=== PATIENT | male | born 1995 | race Caucasian/White ===

== ENCOUNTER 2018-09-11 00:09 | Emergency (ER) | payer MEDICAID, SELFPAY ==
[2018-09-11 00:11] VITALS: BP 140/91; PULSE 81; RESP 20; TEMP 36.6; O2SAT 100
[2018-09-11] MEDS: predniSONE 20 MG TAB 60 MG PO (00:29)
[2018-09-11] MEDS: Azithromycin 250 MG TAB 500 MG PO (00:29)
--- NOTE | 2018-09-11 00:40 | ED.GENADUL_ITS ---
Discharge Plan Disposition Patient Disposition: HOME Condition: Stable Discharge Details Chief Complaint: RespSymp Clinical Impression: Right otitis media with effusion, Bronchitis Primary Care Provider: Gianna Lemons V ED Provider: Yin Altman Home Meds and New Rx's Prescriptions: New prednisone 20 mg tablet 20 mg PO DIRECTED Qty: 12 RF: 0 azithromycin [Zithromax] 250 mg tablet 250 mg PO DAILY 4 Days Qty: 4 RF: 0 Discharge Instructions Instructions: Otitis Media (ED), Acute Bronchitis (ED) Additional Instructions: Alternate Tylenol and Motrin as needed and directed for pain. Take the antibiotics and steroids until finished. Use your albuterol inhaler as needed and directed. You should receive a call from care management regarding follow-up with a primary care doctor for reevaluation. Return immediately to the emergency department any worsening or new concerning symptoms. Discharge Data Discharge Physician: Yin Altman Medical Decision Making 22-year-old male who presents with URI symptoms for the past month. Main complaint at this time is right ear pain. Pressure mildly hypertensive, otherwise vitals within normal limits. Patient afebrile. Patient appears nontoxic. No meningeal signs. Bilateral TMs erythematous and dull, with yellowish fluid behind right TM. Remainder of ENT exam within normal limits. No lymphadenopathy. Lungs bilaterally note scattered rhonchi and minimal wheezing. Abdomen soft and nontender. Patient offered chest x-ray but declines. Patient denies shortness of breath at this time and oxygen saturation and respiratory rate within normal limits. Patient would rather prescriptions for home. Will give a dose of prednisone and Zithromax here as well as prescriptions. Patient does not have a PCP. He was placed on care management list to arrange for a follow-up with a primary care doctor. Patient was instructed to return here at any time if worse. HPI General Mode of arrival: ambulatory . Date/Time Provider Initiated Documentation: 09/11/18 00:24 . Limitations to Documentation: no limitations . Information obtained by: patient . HPI Narrative: Pt is a 22yo M who presents to the ED w/ a c/o cold symptoms for the past month. Pt states his cough was initially productive with sputum and chest congestion but is now dry. Patient states he had had shortness of breath but this is resolving. Patient states his main complaint now is right ear pain and occasional headache. He denies any fever, sore throat, neck pain. Patient has taken Zyrtec for his symptoms. Patient had some nausea earlier today and took Zofran but had no vomiting. Patient states he was able to eat 2 hot dogs after this. Patient states he has been eating and drinking. Related Data Home Medications Medication Instructions Recorded Confirmed azithromycin [Zithromax] 250 mg PO DAILY 4 Days #4 tab 09/11/18 prednisone 20 mg PO DIRECTED #12 tab 09/11/18 Previous Rx's Medication Instructions Recorded azithromycin [Zithromax] 250 mg PO DAILY 4 Days #4 tab 09/11/18 prednisone 20 mg PO DIRECTED #12 tab 09/11/18 Allergies Allergy/AdvReac Type Severity Reaction Status Date / Time amoxicillin Allergy Skin Rash Unverified 09/11/18 00:15 General Stated Complaint: RespSymp DARRIN: 4 Review of Systems Review of Systems All systems reviewed & are unremarkable except as noted in HPI and below Constitutional Reports as per HPI, Denies chills and Denies fever(s) Eyes Denies blurry vision ENT Denies dizziness, Reports otalgia, Denies sore throat and Denies throat swelling Cardiovascular Denies chest pain and Denies dyspnea Respiratory Reports cough and Denies dyspnea Gastrointestinal Denies abdominal pain, Denies diarrhea and Denies vomiting Genitourinary Denies hematuria and Denies dysuria Musculoskeletal Denies back pain and Denies numbness Integumentary/Breasts Denies lesions and Denies rash Neurologic Denies dizziness and Denies numbness Allergic/Immunologic Denies throat swelling PFSH Family History Mother Cardiomyopathy Medical History Asthma (Chronic) Social History Smoking/Tobacco Use Status: Never Exam Const General: cooperative and healthy appearing Orientation: alert and awake [facility] Head: normal to inspection Ears: TM abnormal bulging, dull, wth effusion other (yellowish), erythematous and with fluid behind the TM on the right and other (L TM erythematous with clear fluid ) General nose exam: external nose normal Face and sinus: normal facial exam Mouth: oral mucosae normal Teeth and gingiva: dentition normal Throat: posterior oropharynx normal Eyes General: appearance normal, both eyes and all related structures Eyelids: eyelids normal Pupils: PERRL EOM: EOM intact bilaterally Neck Neck: normal visual inspection Lymphatic: no lymphadenopathy noted Chest Chest: normal inspection of the chest Resp Effort & Inspection: normal respiratory effort and able to speak in complete sentences Auscultation: rhonchi lower bilaterally and wheezes scattered wheezes (minimal) Cardio Rate: regular rate Rhythm: regular rhythm GI Inspection: normal to inspection Palpation: soft, not firm, no guarding, no hepatosplenomegaly, no masses and nontender Auscultation: normal bowel sounds Skin General skin exam: no rashes or lesions noted Neuro General: alert, awake, oriented x3 and no meningeal signs Cognition: normal cognition Speech: speech normal Gait: normal gait Motor: muscle tone normal throughout Sensory Exam: no sensory deficits noted Extrem General: normal to inspection, full ROM, normal capillary refill and no edema Psych Appearance: grossly normal Mental Status: mental status grossly normal Speech and Movement: speech and movement normal Affect: normal affect Thought Process: normal Course Vital Signs Temperature 97.9 F 09/11/18 00:11 Pulse 81 09/11/18 00:11 Respiratory Rate 20 09/11/18 00:11 Blood Pressure 140/91 H 09/11/18 00:11 Pulse Oximetry 100 09/11/18 00:11 Temperature 97.9 F 09/11/18 00:11 Temperature Source Skin 09/11/18 00:11 Pulse 81 09/11/18 00:11 Respiratory Rate 20 09/11/18 00:11 Respiratory Effort Non-Labored 09/11/18 00:16 Respiratory Depth Normal 09/11/18 00:16 Blood Pressure 140/91 H 09/11/18 00:11 Blood Pressure Position Sitting 09/11/18 00:11 Pulse Oximetry 100 09/11/18 00:11 Oxygen Delivery Method Room Air 09/11/18 00:11 Oxygen Flow Rate 0 09/11/18 00:11 Pain Level 6 09/11/18 00:11
[2018-09-11 00:42] VITALS: BP 140/91; PULSE 81; RESP 20; TEMP 36.6; O2SAT 100
== END 2018-09-11 00:35 | disposition home or self-care (01) ==
PROVIDERS: Emergency Provider Physician Assistant; PCP Family Medicine
DX: H65.191 Other acute nonsuppurative otitis media, right ear (principal); J20.9 Acute bronchitis, unspecified
CPT/HCPCS: 99283; J7512

== ENCOUNTER 2021-05-06 18:38 | Emergency (ER) | payer SELFPAY ==
[2021-05-06 18:45] VITALS: BP 146/94; PULSE 60; RESP 16; TEMP 36.4; O2SAT 99
--- NOTE | 2021-05-06 18:58 | W.ED.GENAD ---
Discharge Plan Disposition Patient Disposition: HOME Condition: Improving Discharge Details Clinical Impression: Abscess of shaft of penis Primary Care Provider: Sebastian Dewitt ED Provider: Ross Hanks Discharge Instructions Instructions: Abscess (ED) Additional Instructions: Please take Bactrim twice daily until finished. Our care management team will arrange a follow-up for you in urology clinic. Return if develop a fever, shaking chills, or any other acute concerns. You may have discrete bleeding for approximately 1/2-day. Continue gentle dressing as needed for 1 to 2 days time. Stand Alone Forms: Work Release Discharge Data Discharge Date/Time-TO BE ENTERED AT DEPARTURE: 05/06/21 19:35 Medical Decision Making 25-year-old male presents with approximately 1 week of slowly progressive discrete abscess on the distal dorsal shaft of his penis just proximal to the penile meatus. He is not systemically ill him is otherwise been well. I consented the patient for the procedure, he was prepped and draped in a standard sterile fashion, the area was anesthetized with lidocaine, and needle aspiration and subsequent incision with an 11 blade scalpel was made with the release of approximately 0.5 cc of purulent fluid which was sent for culture. Most consistent with a cutaneous abscess. Will place him on Bactrim to ensure healing. I will also ask physician assistant primary care to arrange a follow-up with urology for reevaluation. Patient stable and improved. HPI General Mode of arrival: ambulatory. Date/Time Provider Initiated Documentation: 05/06/21 18:38. Limitations to Documentation: no limitations. Information obtained by: patient. History of Present Illness 25 year old M presents to the emergency department with the chief complaint of Penile lesion, described as mild and moderate, Quality is described as dull and constant, and is localized to the genitals. Patient reports no radiation. Patient started experiencing this day(s) and it has been constant. No relieving factors improve symptom(s), No exacerbating factors reported . Patient did receive the following treatments prior to arrival, none Related Data Allergies Allergy/AdvReac Type Severity Reaction Status Date / Time amoxicillin Allergy Skin Rash Unverified 05/06/21 18:48 General Stated Complaint: RashLesion DARRIN: 4 Review of Systems Narrative: 6 systems reviewed and otherwise negative. [facility] Medical History (Updated 05/06/21 @ 19:22 by Ross Hanks MD) Asthma Family History Mother Cardiomyopathy Social History Smoking/Tobacco Use Status: Former Tobacco Use Smoking risk assessment performed?: Yes Alcohol Intake: current Alcohol Intake frequency: a few times a month Drug use: Never Substance use type: does not use Do you feel safe at home: Yes Do you feel safe in your relationship?: Yes Exam Narrative Exam Narrative: GEN: awake, alert, oriented 3. Pleasant, well groomed, interactive. HEAD: Normocephalic, atraumatic ENT: Mucous membranes moist, oropharynx unremarkable, External ear exam unremarkable CHEST/RESP: Nontender, clear to auscultation bilateral, no wheeze/rhonchi/rales CARDIOVASCULAR: RRR, no murmur, rub kosta. 2+ Rad pulse bilateral ABDOMEN: Soft, nontender, no mass. +Bowel sounds DESPATCHING AND RECEIVING CLERK: Circumcised. On the dorsal distal shaft of the penis on the right side there is a small approximately half centimeter diameter pustule. EXT: Full ROM, no edema, no rash Neuro: Grossly normal neurologic exam, conversant, interactive. Psych: Speech fluent, thoughts congruent, affect normal Course Vital Signs Vital signs: Vital Signs Temperature 36.4 C L 05/06/21 18:45 Pulse 60 05/06/21 18:45 Respiratory Rate 16 05/06/21 18:45 Blood Pressure 146/94 H 05/06/21 18:45 Pulse Oximetry 99 05/06/21 18:45 Temperature 36.4 C L 05/06/21 18:45 Temperature Source Temporal Artery Scan 05/06/21 18:45 Pulse 60 05/06/21 18:45 Respiratory Rate 16 05/06/21 18:45 Blood Pressure 146/94 H 05/06/21 18:45 Blood Pressure Position Sitting 05/06/21 18:45 Pulse Oximetry 99 05/06/21 18:45 Oxygen Delivery Method Room Air 05/06/21 18:45 Oxygen Flow Rate 0 05/06/21 18:45 Procedures Abscess I/D Site: Other (penis) Side (if applicable): Right Local Anesthetic: Lidocaine 1% Technique: Needle Aspiration and Incised with #11 Blade Amount of fluid expressed (mL): 0.5 Packing used?: None
--- NOTE | 2021-05-06 19:19 | NUR.NOTE ---
Nursing Note: Patient placed on care management list and faxed to urology for follow up care regarding todays visit.
== END 2021-05-06 19:35 | disposition home or self-care (01) ==
PROVIDERS: Emergency Provider Emergency Medicine; PCP Family Medicine
DX: N48.21 Abscess of corpus cavernosum and penis (principal)
CPT/HCPCS: 10060; 87070; 87205